=== PATIENT | female | born 1995 | race American Indian/Alaskan Native ===

== ENCOUNTER 2016-04-04 00:07 | Emergency (ER) | payer OTHER ==
[2016-04-04 00:48] VITALS: BP 126/86
[2016-04-04 03:00] LABS: Basophils % (Auto) 0.5 % (0.0-1.8); Eosinophils % (Auto) 2.7 % (0.0-4.3); Hematocrit 37.8 % (30.3-42.9); Hemoglobin 12.6 gm/dl (10.1-14.3); Mean Corpuscular HGB Conc 33 % (30-34); Mean Corpuscular Hemoglobin 33 pg (28-32); Mean Corpuscular Volume 98 fl (79-97); Platelet Count 204 K/mm3 (140-440); Red Blood Count 3.85 M/mm3 (3.65-5.03); White Blood Count 5.3 K/mm3 (4.5-11.0)
[2016-04-04 03:13] LABS: Mucus,Urine FEW /HPF
[2016-04-04 03:15] LABS: Alanine Aminotransferase 9 units/L (7-56); Albumin 4.3 g/dL (3.9-5); Albumin/Globulin Ratio 1.4 %; Alkaline Phosphatase 51 units/L (35-129); Anion Gap 20 mmol/L; Bilirubin,Total 0.4 mg/dL (0.1-1.2); Blood Urea Nitrogen 7 mg/dL (7-17); Calcium 9.1 mg/dL (8.4-10.2); Carbon Dioxide 20 mmol/L (22-30); Chloride 100.5 mmol/L (98-107); Glucose 90 mg/dL (65-100); Lipase 24 units/L (13-60); Potassium 4.2 mmol/L (3.6-5.0); Sodium 136 mmol/L (137-145); Total Protein 7.3 g/dL (6.3-8.2)
[2016-04-04 03:17] LABS: Bilirubin,Urine NEG (Negative); Blood,Urine LG (Negative); Ketones,Urine NEG (Negative); Leukocyte Esterase,Urine NEG (Negative); Nitrite,Urine NEG (Negative); Protein,Urine <15 mg/dL mg/dL (Negative)
--- NOTE | 2016-04-06 07:45 | ED Elopement Review ---
ED Pt Elopement review - Results review Lab results: Laboratory Tests 04/04/16 04/04/16 04/04/16 02:38 02:38 02:46 WBC 5.3 RBC 3.85 Hgb 12.6 Hct 37.8 MCV 98 H MCH 33 H MCHC 33 RDW 12.0 L Plt Count 204 Lymph % (Auto) 38.9 H [place] % (Auto) 10.7 H Eos % (Auto) 2.7 Baso % (Auto) 0.5 Lymph # 2.1 [place] # 0.6 Eos # 0.1 Baso # 0.0 Seg Neutrophils % 47.2 Seg Neutrophils # 2.5 Sodium 136 L Potassium 4.2 Chloride 100.5 Carbon Dioxide 20 L Anion Gap 20 BUN 7 Creatinine 0.5 L Estimated GFR > 60 BUN/Creatinine Ratio 14.00 Glucose 90 Calcium 9.1 Total Bilirubin 0.4 AST 18 ALT 9 Alkaline Phosphatase 51 Total Protein 7.3 Albumin 4.3 Albumin/Globulin Ratio 1.4 Lipase 24 Urine Color Yellow Urine Turbidity Clear Urine pH 6.0 Ur Specific [place] 1.021 Urine Protein <15 mg/dl Urine Glucose (UA) Neg Urine Ketones Neg Urine Blood Lg Urine Nitrite Neg Ur Reducing Substances Not Reportable Urine Bilirubin Neg Urine Ictotest Not Reportable Urine Urobilinogen 4.0 Ur Leukocyte Esterase Neg Urine WBC (Auto) 2.0 Urine RBC (Auto) 59.0 U Epithel Cells (Auto) 2.0 Urine Mucus Few Urine HCG, Qual Negative - Call Back decision Pt Call Back Decision: No action required
== END 2016-04-04 02:40 | disposition left against medical advice (07) ==
LOC: ED 00:07
DX: O26.891 Other specified pregnancy related conditions, first trimester (principal); R10.9 Unspecified abdominal pain; F17.200 Nicotine dependence, unspecified, uncomplicated; Z3A.00 Weeks of gestation of pregnancy not specified; Z53.21 Procedure and treatment not carried out due to patient leaving prior to being seen by health care provider
CPT/HCPCS: 36415; 80053; 81001; 81025; 83690; 85025

== ENCOUNTER 2016-05-18 23:13 | Emergency (ER) | payer MEDICAID, OTHER ==
[2016-05-18] MEDS ORDERED: TYLENOL PO ONE (23:53)
[2016-05-18] MEDS ORDERED: ZOFRAN ODT PO ONE (23:53)
[2016-05-19 00:14] LABS: Basophils % (Auto) 0.6 % (0.0-1.8); Eosinophils % (Auto) 0.4 % (0.0-4.3); Hematocrit 31.5 % (30.3-42.9); Hemoglobin 10.8 gm/dl (10.1-14.3); Mean Corpuscular HGB Conc 34 % (30-34); Mean Corpuscular Hemoglobin 35 pg (28-32); Mean Corpuscular Volume 101 fl (79-97); Red Blood Count 3.12 M/mm3 (3.65-5.03); Red Cell Distribution Width 12.5 % (13.2-15.2); White Blood Count 8.5 K/mm3 (4.5-11.0)
[2016-05-19 00:30] LABS: Platelet Count 266 K/mm3 (140-440)
[2016-05-19 00:33] LABS: Anion Gap 18 mmol/L; Blood Urea Nitrogen 10 mg/dL (7-17); Calcium 8.8 mg/dL (8.4-10.2); Carbon Dioxide 18 mmol/L (22-30); Chloride 103.9 mmol/L (98-107); Glucose 96 mg/dL (65-100); Potassium 4.2 mmol/L (3.6-5.0); Sodium 136 mmol/L (137-145)
[2016-05-19 00:53] LABS: Bilirubin,Urine NEG (Negative); Blood,Urine MOD (Negative); Ketones,Urine TR mg/dL (Negative); Leukocyte Esterase,Urine TR (Negative); Mucus,Urine FEW /HPF; Nitrite,Urine NEG (Negative)
[2016-05-19] MEDS ORDERED: MACROBID PO ONE (03:06)
--- NOTE | 2016-05-19 03:06 | Emergency Department Report ---
ED Female HPI - General Chief complaint: Abdominal Pain Stated complaint: ABD PAIN/DIZZINESS/12WKS PREG Time Seen by Provider: 05/19/16 02:53 Source: patient Mode of arrival: Ambulatory Limitations: No Limitations - History of Present Illness Initial comments: This is a 20-year-old female who presents to the ED with sore vague complaints. She reports nausea vomiting as well as some lower abdominal pains. She denies he's being crampy. She describes more as dull in nature. She does have some mild serious sensations as well. Patient denies any vaginal bleeding or discharge. She does report . She believes she is 12 weeks by dates. She has not sought after OB care yet. She has not on vitamins currently. She denies any diarrhea. Quality: dull Consistency: intermittent Improves with: none Worsens with: urination - Related Data Previous Rx's Medication Instructions Recorded Last Taken Type Nitrofurantoin [place]/M-Cryst 100 mg PO BID #14 capsule 05/19/16 Unknown Rx [Macrobid CAP] Pnv #14/Ferrous Fum/Folic Acid 1 each PO DAILY #30 tab.chew 05/19/16 Unknown Rx [Completenate Tablet Chew] Allergies Allergy/AdvReac Type Severity Reaction Status Date / Time No Known Allergies Allergy Verified 05/19/16 02:55 ED Review of Systems ROS: Stated complaint: ABD PAIN/DIZZINESS/12WKS PREG Other details as noted in HPI Comment: All other systems reviewed and negative Constitutional: denies: chills, fever Eyes: denies: eye pain, eye discharge, vision change ENT: denies: ear pain, throat pain Respiratory: denies: cough, shortness of breath, wheezing Cardiovascular: denies: chest pain, palpitations Endocrine: no symptoms reported Gastrointestinal: abdominal pain, nausea. denies: diarrhea Genitourinary: dysuria. denies: urgency, discharge Musculoskeletal: denies: back pain, joint swelling, arthralgia Skin: denies: rash, lesions Neurological: denies: headache, weakness, paresthesias Psychiatric: denies: anxiety, depression Hematological/Lymphatic: denies: easy bleeding, easy bruising ED Past Medical Hx - Past Medical History Previous Medical History?: No - Surgical History Past Surgical History?: No - Social History Smoking Status: Current Every Day Smoker Substance Use Type: None - Medications Home Medications: Home Medications Medication Instructions Recorded Confirmed Last Taken Type Nitrofurantoin [place]/M-Cryst 100 mg PO BID #14 capsule 05/19/16 Unknown Rx [Macrobid CAP] Pnv #14/Ferrous Fum/Folic Acid 1 each PO DAILY #30 tab.chew 05/19/16 Unknown Rx [Completenate Tablet Chew] ED Physical Exam - General Limitations: No Limitations General appearance: alert, in no apparent distress - Head Head exam: Present: atraumatic, normocephalic - Eye Eye exam: Present: normal appearance, EOMI. Absent: scleral icterus - ENT ENT exam: Present: normal exam, normal orophraynx, mucous membranes moist - Neck Neck exam: Present: normal inspection. Absent: meningismus, lymphadenopathy - Respiratory Respiratory exam: Present: normal lung sounds bilaterally. Absent: respiratory distress, wheezes, rales - Cardiovascular Cardiovascular Exam: Present: regular rate, normal rhythm. Absent: tachycardia , systolic murmur, diastolic murmur, rubs, gallop - GI/Abdominal GI/Abdominal exam: Present: soft, normal bowel sounds. Absent: tenderness, guarding, organomegaly - Extremities Exam Extremities exam: Present: normal inspection - Back Exam Back exam: Present: normal inspection. Absent: tenderness, CVA tenderness (R), CVA tenderness (L) - Neurological Exam Neurological exam: Present: alert, oriented X3 - Psychiatric Psychiatric exam: Present: normal affect, normal mood - Skin Skin exam: Present: warm, dry, intact, normal color. Absent: rash ED Course Vital Signs 05/18/16 05/19/16 05/19/16 23:43 01:25 03:23 Temperature 98 F Pulse Rate 106 H 88 Respiratory 16 18 16 Rate Blood Pressure 115/63 Blood Pressure 115/63 112/60 [Left] O2 Sat by Pulse 100 99 Oximetry - Reevaluation(s) Reevaluation #1: 05/19/16 18:38 Bedside ultrasound was performed. I was able to identify intrauterine with heart tones noted in the 170s. While I am not a professional suspender maker the baby does appear to be younger than 12 weeks I would guess at 10 weeks. There is no adnexal abnormalities noted with ultrasound there is no free fluid in the pelvis otherwise. Patient was given IV fluids here. She did subjectively feel much improved with this. Urinalysis was noted. It is not that impressive but due to having some symptoms I'm inclined to treat. I did offer to do pelvic examination for the patient she declined at this time. She states that she did recently have one done that she will be following with OB and have another one done through them. She is not having any vaginal bleeding and this time hCG levels are noted. I did give referral for OB as well as vitamins and antibiotics. I did discuss to some length symptomatically treatment she can do to try to better tolerate oral intake. She is safe for home. ED Medical Decision Making - Lab Data Result diagrams: 05/18/16 23:56 05/18/16 23:56 Critical care attestation.: If time is entered above; I have spent that time in minutes in the direct care of this critically ill patient, excluding procedure time. ED Disposition Clinical Impression: Qualifiers: Weeks of gestation: 10 weeks Qualified Code(s): Z3A.10 - 10 weeks gestation of Abdominal pain Qualifiers: Abdominal location: left lower quadrant Qualified Code(s): R10.32 - Left lower quadrant pain UTI (urinary tract infection) Qualifiers: Urinary tract infection type: acute cystitis Hematuria presence: with hematuria Qualified Code(s): N30.01 - Acute cystitis with hematuria Disposition: DISCHARGED TO HOME OR SELFCARE Is pt being admited?: No Does the pt Need Aspirin: No Condition: Stable Instructions: (ED), Abdominal Pain (ED) Additional Instructions: Drink plenty of fluids. Take your vitamins and year antibiotics as prescribed. Follow-up with OB for continued OB care. Return if you have worsening pains. Prescriptions: Nitrofurantoin [place]/M-Cryst [Macrobid CAP] 100 mg PO BID #14 capsule Pnv #14/Ferrous Fum/Folic Acid [Completenate Tablet Chew] 1 each PO DAILY #30 tab.chew Referrals: [facility] [Provider Group] - 3-5 Days Time of Disposition: 03:07
[2016-05-19 03:24] VITALS: BP 112/60
== END 2016-05-19 03:24 | disposition home or self-care (01) ==
LOC: ED 23:13
DX: O23.11 Infections of bladder in pregnancy, first trimester (principal); N30.01 Acute cystitis with hematuria; O99.331 Smoking (tobacco) complicating pregnancy, first trimester; Z3A.10 10 weeks gestation of pregnancy
CPT/HCPCS: 36415; 80048; 81001; 84702; 85025; 99283; Q0162

== ENCOUNTER 2016-06-11 01:14 | Emergency (ER) | payer MEDICAID ==
[2016-06-11 02:05] VITALS: BP 109/75
[2016-06-11 05:31] LABS: Bilirubin,Urine NEG (Negative); Blood,Urine MOD (Negative); Ketones,Urine NEG (Negative); Leukocyte Esterase,Urine LG (Negative); Nitrite,Urine NEG (Negative); Protein,Urine <15 mg/dL mg/dL (Negative); Urobilinogen,Urine < 2.0 mg/dL (<2.0)
--- NOTE | 2016-06-12 00:07 | ED Elopement Review ---
ED Pt Elopement review - Results review Lab results: Laboratory Tests 06/11/16 04:10 Urine Color Yellow Urine Turbidity Cloudy Urine pH 6.0 Ur Specific [place] 1.016 Urine Protein <15 mg/dl Urine Glucose (UA) Neg Urine Ketones Neg Urine Blood Mod Urine Nitrite Neg Urine Bilirubin Neg Urine Urobilinogen < 2.0 Ur Leukocyte Esterase Lg Urine WBC (Auto) 34.0 H Urine RBC (Auto) 41.0 U Epithel Cells (Auto) 14.0 H Urine Yeast ([place]) 1+ Urine HCG, Qual Positive A - Call Back decision Pt Call Back Decision: No action required
== END 2016-06-11 04:15 | disposition left against medical advice (07) ==
LOC: ED 01:14
DX: O26.891 Other specified pregnancy related conditions, first trimester (principal); R11.0 Nausea; M54.5 Low back pain; Z3A.13 13 weeks gestation of pregnancy; Z53.21 Procedure and treatment not carried out due to patient leaving prior to being seen by health care provider
CPT/HCPCS: 81001; 81025

== ENCOUNTER 2019-11-13 08:26 | Emergency (ER) | payer MEDICAID ==
[2019-11-13 08:34] VITALS: BP 122/93
== END 2019-11-13 12:15 | disposition left against medical advice (07) ==
LOC: ED 08:26
DX: R51 Headache (principal); Z53.21 Procedure and treatment not carried out due to patient leaving prior to being seen by health care provider; Y04.8XXA Assault by other bodily force, initial encounter; Y93.89 Activity, other specified; Y92.89 Other specified places as the place of occurrence of the external cause; Y99.8 Other external cause status

== ENCOUNTER 2020-10-28 04:11 | Emergency (ER) | payer MEDICAID ==
[2020-10-28 04:45] VITALS: BP 156/107
[2020-10-28] MEDS ORDERED: AMOXICILLIN/K CLAV 875/125MG TAB PO ONE (05:33)
[2020-10-28] MEDS ORDERED: IBUPROFEN 800 MG TAB PO ONE (05:36)
--- NOTE | 2020-10-28 06:00 | Emergency Department Report ---
ED General Adult HPI - General Chief complaint: Dental/Oral Stated complaint: HEADACHE Time Seen by Provider: 10/28/20 05:32 Source: patient Mode of arrival: Ambulatory Limitations: No Limitations - History of Present Illness Initial comments: Patient is a 24-year-old -[place] female who presents for frontal headache x2 days radiating to left jaw. Patient states secondary complaint of dental pain which is a chronic problem for this patient is. Patient states dental pain exacerbates headache. Patient has had similar headaches in the past same location and intensity. Patient denies fevers there is no sore throat or ear pain. Pain is described as 8/10 aching sharp exacerbated by hot and cold stimuli orally . Patient states intermittent gum and facial swelling. She is not seen dentist. Patient is tolerating p.o. intake. Severity scale (0 -10): 10 - Related Data Previous Rx's Medication Instructions Recorded Last Taken Type Nitrofurantoin [place]/M-Cryst 100 mg PO BID #14 capsule 05/19/16 Unknown Rx [Macrobid CAP] Vit 14/Iron Fum/Folic 1 each PO DAILY #30 tab.chew 05/19/16 Unknown Rx [Completenate Tablet Chew] Ibuprofen [Motrin 800 MG tab] 800 mg PO TID PRN #30 tablet 01/14/18 Unknown Rx oxyCODONE /ACETAMINOPHEN [Percocet 1 - 2 tab PO Q4HR PRN #15 tablet 01/14/18 Unknown Rx 5/325 mg] Acetaminophen [Tylenol] 650 mg PO Q8HR PRN #20 capsule 09/13/19 Unknown Rx Metoclopramide [Reglan] 10 mg PO Q8HR PRN #12 tab 09/13/19 Unknown Rx Amoxicillin [Amoxicillin TAB] 875 mg PO BID 7 Days #14 tablet 10/28/20 Unknown Rx Chlorhexidine Mouthwash [Peridex] 15 ml MM BID #1 bottle 10/28/20 Unknown Rx Ibuprofen [Motrin 800 MG tab] 800 mg PO Q8HR PRN #30 tablet 10/28/20 Unknown Rx Allergies Allergy/AdvReac Type Severity Reaction Status Date / Time No Known Allergies Allergy Verified 10/28/20 04:41 ED Review of Systems ROS: Stated complaint: HEADACHE Other details as noted in HPI Constitutional: denies: chills, fever Eyes: denies: eye pain, eye discharge, vision change ENT: dental pain. denies: ear pain, throat pain Respiratory: denies: cough, shortness of breath, wheezing Cardiovascular: denies: chest pain, palpitations Endocrine: no symptoms reported Gastrointestinal: denies: abdominal pain, nausea, vomiting, diarrhea Genitourinary: denies: urgency, dysuria, discharge Musculoskeletal: denies: back pain, joint swelling, arthralgia Skin: denies: rash, lesions Neurological: headache. denies: numbness, paresthesias, confusion, vertigo Psychiatric: denies: anxiety, depression Hematological/Lymphatic: denies: easy bleeding, easy bruising ED Past Medical Hx - Past Medical History Hx Hypertension: Yes Hx Congestive Heart Failure: No Hx Diabetes: No Hx Deep Vein Thrombosis: No Hx Renal Disease: No Hx Sickle Cell Disease: No Hx Seizures: No Hx Asthma: No Hx COPD: No Hx HIV: No - Social History Smoking Status: Never Smoker Substance Use Type: None - Medications Home Medications: Home Medications Medication Instructions Recorded Confirmed Last Taken Type Nitrofurantoin [place]/M-Cryst 100 mg PO BID #14 capsule 05/19/16 01/13/18 Unknown Rx [Macrobid CAP] Vit 14/Iron Fum/Folic 1 each PO DAILY #30 tab.chew 05/19/16 01/13/18 Unknown Rx [Completenate Tablet Chew] Ibuprofen [Motrin 800 MG tab] 800 mg PO TID PRN #30 tablet 01/14/18 Unknown Rx oxyCODONE /ACETAMINOPHEN [Percocet 1 - 2 tab PO Q4HR PRN #15 tablet 01/14/18 Unknown Rx 5/325 mg] Acetaminophen [Tylenol] 650 mg PO Q8HR PRN #20 capsule 09/13/19 Unknown Rx Metoclopramide [Reglan] 10 mg PO Q8HR PRN #12 tab 09/13/19 Unknown Rx Amoxicillin [Amoxicillin TAB] 875 mg PO BID 7 Days #14 tablet 10/28/20 Unknown Rx Chlorhexidine Mouthwash [Peridex] 15 ml MM BID #1 bottle 10/28/20 Unknown Rx Ibuprofen [Motrin 800 MG tab] 800 mg PO Q8HR PRN #30 tablet 10/28/20 Unknown Rx ED Physical Exam - General Limitations: No Limitations General appearance: alert, in no apparent distress - Head Head exam: Present: atraumatic - Eye Eye exam: Present: normal appearance, PERRL, EOMI. Absent: conjunctival injection, nystagmus Pupils: Present: normal accommodation - ENT ENT exam: Present: mucous membranes moist, TM's normal bilaterally, normal external ear exam - Expanded ENT Exam Expanded Ear exam: Present: normal external inspection Mouth exam: Absent: trismus Teeth exam: Present: dental caries (16), dental tenderness # (16) Throat exam: Positive: normal inspection. Negative: tonsillar erythema, tonsillomegaly, tonsillar exudate - Neck Neck exam: Present: normal inspection - Respiratory Respiratory exam: Present: normal lung sounds bilaterally. Absent: wheezes, stridor, chest wall tenderness - Cardiovascular Cardiovascular Exam: Present: regular rate, normal rhythm, normal heart sounds. Absent: systolic murmur, diastolic murmur, rubs, gallop - GI/Abdominal GI/Abdominal exam: Present: soft, normal bowel sounds. Absent: distended, tenderness - Rectal Rectal exam: Present: deferred - Extremities Exam Extremities exam: Present: normal inspection, full ROM. Absent: tenderness - Back Exam Back exam: Present: normal inspection, full ROM. Absent: vertebral tenderness - Neurological Exam Neurological exam: Present: alert, oriented X3, CN II-XII intact, normal gait - Expanded Neurological Exam Expanded Patient oriented to: Present: person, place, time Speech: Present: fluid speech Motor strength exam: RUE: 5, LUE: 5, RLE: 5, LLE: 5 Best Eye Response ([place]): (4) open spontaneously Best Motor Response ([place]): (6) obeys commands Best Verbal Response ([place]): (5) oriented Dima Total: 15 - Psychiatric Psychiatric exam: Present: normal affect, normal mood - Skin Skin exam: Present: warm, dry, intact, normal color. Absent: rash ED Course Vital Signs 10/28/20 10/28/20 04:44 04:45 Temperature 98.3 F Pulse Rate 71 Blood Pressure 156/107 O2 Sat by Pulse 98 Oximetry ED Medical Decision Making - Medical Decision Making This is infected dental caries, airway is patent there is no throat or ear pain. Patient is tolerating p.o. intake. There is no focal abscess noted. Headache is unusual location and duration. Plan DC to home with prescriptions, follow-up with dentist in 2 to 3 days. Return to emergency should symptoms worsen. Patient verbalized agreement and understanding with discharge plan. Patient will be DC'd home in stable condition at this time. Critical care attestation.: If time is entered above; I have spent that time in minutes in the direct care of this critically ill patient, excluding procedure time. ED Disposition Clinical Impression: Infected dental caries Headache Qualifiers: Headache type: unspecified Headache chronicity pattern: unspecified pattern Intractability: not intractable Qualified Code(s): R51.9 - Headache, unspecified Disposition: 01 HOME / SELF CARE / HOMELESS Is pt being admited?: No Does the pt Need Aspirin: No Condition: Stable Instructions: Preventive Dental Care, Adult, General Headache Without Cause, [id number] Additional Instructions: Take medications as prescribed. Follow-up with dentist and 2 to 3 days. Return to emergency if symptoms worsen. Prescriptions: Amoxicillin [Amoxicillin TAB] 875 mg PO BID 7 Days #14 tablet Ibuprofen [Motrin 800 MG tab] 800 mg PO Q8HR PRN #30 tablet PRN Reason: Pain , Severe (7-10) Chlorhexidine Mouthwash [Peridex] 15 ml MM BID #1 bottle Referrals: [facility] [Provider Group] - 3-5 Days Forms: Work/School Release Form(ED) Time of Disposition: 06:05
== END 2020-10-28 07:03 | disposition home or self-care (01) ==
LOC: ED 04:11
DX: K02.9 Dental caries, unspecified (principal); R51.9 Headache, unspecified; I10 Essential (primary) hypertension
CPT/HCPCS: 99282